=== PATIENT | male | born 1965 | race Caucasian/White ===

== ENCOUNTER 2017-10-26 10:31 | Day surgery (SDC) | payer BC ==
[2017-10-26] MEDS ORDERED: LIDOCAINE 2% MDV (20MG/ML) 20ML VIAL IV ONE (10:32)
--- NOTE | 2017-10-27 13:10 | Operative Note ---
DATE OF SURGERY: 10/26/2017 OPERATION: COLONOSCOPY to the cecum with cold snare polypectomy. INDICATION: Colorectal cancer screening. ANESTHESIA: Intravenous sedation was administered by the department of anesthesiology and included Diprivan titrated to effect. PROCEDURE: Following informed consent from this alert individual including a discussion of the risks and benefits of the procedure and an opportunity for the patient to ask questions, the patient was in the left lateral decubitus position. A digital rectal examination was performed. No masses were noted. Following this, the Olympus SYV327 video colonoscope was inserted into the rectum without resistance. The rectal mucosa had a normal appearance with normal folds and distensibility. The colonoscope was advanced up through the colon to the level of the cecum without much difficulty. Throughout the bowel the mucosa appeared normal, the folds were normal, and the bowel was fairly well distensible. Scattered diverticula were noted in the sigmoid colon. Abdominal pressure support was applied when the colonoscope was in the ascending colon to facilitate reaching the cecal base. From the cecum, the colonoscope was then withdrawn back through the bowel, reexamining the mucosa upon withdrawal. No additional abnormalities were noted until the rectum was reached. In the proximal rectum, there was a sessile 4-5 mm polyp along a fold which was removed with cold snare polypectomy and suctioned through the endoscope into a collection trap. Retroflexion in the rectum demonstrated some mild irritation at the pectinate line but was otherwise unremarkable. The endoscope was straightened and removed. The patient tolerated the procedure well and was returned to the recovery area in stable condition. IMPRESSION: 1. A 4-5 mm sessile rectal polyp removed with cold snare polypectomy. 2. Sigmoid diverticulosis. RECOMMENDATIONS: The patient was advised he should receive a copy of his pathology report at home in the next 2-3 weeks. If not, he was asked to call my office to review the results of testing today. Further recommendations forthcoming pending those results. Followup will also be with Dr. Ron Wilson. As always, thank you for allowing me to participate in the care of your patient. CC: Dr. Katie JORDAN
== END 2017-10-26 13:02 | disposition home or self-care (01) ==
LOC: HOP 10:31
PROVIDERS: ATTEND Internal Medicine Gastroenterology
DX: Z12.11 Encounter for screening for malignant neoplasm of colon (principal); D12.8 Benign neoplasm of rectum; K57.30 Diverticulosis of large intestine without perforation or abscess without bleeding